=== PATIENT | female | born 1980 | race Caucasian/White ===

== ENCOUNTER 2020-02-22 11:15 | Day surgery (SDC) | payer OTHER ==
[~2020-02-22] VITALS: Ht 157.5 cm; Wt 90.7 kg
[2020-02-22] MEDS ORDERED: METOCLOPRAMIDE 10 MG/2 ML VIAL ONE (11:28)
[2020-02-22] MEDS ORDERED: SCOPOLAMINE HYDROBROMIDE 1 EACH ADH..PATCH TD ONE (11:31)
[2020-02-22 11:36] VITALS: BP 112/60
[2020-02-22] MEDS ORDERED: LIDOCAINE PF 2% 5ML ABBOJECT ONE (11:36)
[2020-02-22] MEDS ORDERED: ROCURONIUM 10MG/1ML SYR 10 MG/ML ML ONE (11:36)
[2020-02-22] MEDS ORDERED: SUCCINYLCHOLINE CHLORIDE 20 MG/ML 10 ML VIAL ONE ×2 (11:36→11:42)
[2020-02-22] MEDS ORDERED: FENTANYL CITRATE PF 50 MCG/1 ML 2ML VIAL ONE (11:37)
[2020-02-22] MEDS ORDERED: PROPOFOL 10 MG/ML 20ML VIAL IV ONE (11:37)
[2020-02-22] MEDS ORDERED: MIDAZOLAM HCL 1 MG/ML 2ML VIAL ONE (11:37)
[2020-02-22] MEDS ORDERED: ONDANSETRON HCL 4 MG/2 ML VIAL ONE ×2 (11:38→12:06)
[2020-02-22] MEDS ORDERED: LACTATED RINGERS 1000ML 1,000 ML IV SCH (11:42)
[2020-02-22] MEDS ORDERED: CEFAZOLIN SODIUM 1 GM VIAL IVP ONE (11:45)
[2020-02-22] MEDS ORDERED: CEFAZOLIN SODIUM 1 GM VIAL IVP PRN (11:45)
[2020-02-22] MEDS ORDERED: CEFAZOLIN SODIUM 1 GM VIAL ONE (11:45)
[2020-02-22 11:51] LABS: HEMATOCRIT 38.6 % (36-48); MEAN CORPUSCULAR HEMOGLOBIN 30.4 pg (27.0-33.0); MEAN CORPUSCULAR HGB CONC 34.5 g/dL (32.0-36.0); MEAN CORPUSCULAR VOLUME 88.3 fL (79-99); RED BLOOD CELL COUNT(AUTO) 4.37 MIL/uL (4.00-5.50); RED CELL DISTRIBUTION WIDTH 12.6 % (11.0-15.5); WHITE BLOOD COUNT (AUTO) 7.7 K/uL (4.8-10.8)
[2020-02-22] MEDS ORDERED: OXYTOCIN 10 USP UNITS/ML ONE (11:53)
[2020-02-22] MEDS ORDERED: CALDOLOR 800MG+NS 250ML 250 ML IV ONE (12:29)
== END 2020-02-22 13:50 | disposition home or self-care (01) ==
LOC: LDH 11:15 → WSO 11:15
PROVIDERS: ATTEND Obstetrics & Gynecology
DX: O03.4 Incomplete spontaneous abortion without complication (principal); N85.4 Malposition of uterus
CPT/HCPCS: 36415; 59812; 85027; 86850; 86900; 86901; A4351; C1769; J0330 ×2; J0690 ×2; J1741; J2001; J2250; J2405 ×2; J2590; J2704; J2765; J3010; J7030; G0378